=== PATIENT | female | born 1965 | race Caucasian/White ===

== ENCOUNTER 2017-11-20 07:22 | Day surgery (SDC) | payer BC ==
[~2017-11-20] VITALS: Ht 177.8 cm; Wt 65.8 kg
[~2017-11-20 07:22] MED LIST: CEFAZOLIN 1 GM IVPB PREMIX 50 ML IV ONE
[2017-11-20 07:46] LABS: HCG,QUAL RESULT NEGATIVE (NEGATIVE)
[2017-11-20] MEDS ORDERED: LR 1,000 ML IV SCH (09:24)
[2017-11-20] MEDS ORDERED: METOCLOPRAMIDE HCL 10 MG/2 ML VIAL IVP PRN (09:30)
[2017-11-20] MEDS ORDERED: MORPHINE 4 MG/ML INJ. SYRINGE IVP PRN ×3 (09:30)
[2017-11-20] MEDS ORDERED: ONDANSETRON HCL 4 MG/2 ML VIAL IVP PRN (10:00)
[2017-11-20] MEDS ORDERED: OXYCODONE/ACETAMINOPHEN 5-325 TABLET PO PRN ×2 (10:00)
[2017-11-20] MEDS ORDERED: HYDROcodone/ACETAMIN 5-325 MG TAB (NORCO/ VICODIN) PO PRN (10:00)
[2017-11-20] MEDS ORDERED: KETOROLAC TROMETHAMINE 30 MG VIAL IM ONE (11:00)
[2017-11-20 11:06] VITALS: BP_SYST 123
== END 2017-11-20 11:30 | disposition home or self-care (01) ==
LOC: SDS 07:22 → SMU 07:22 → SDS 11:30
PROVIDERS: ATTEND Specialist
DX: N71.9 Inflammatory disease of uterus, unspecified (principal); Z98.890 Other specified postprocedural states; Z79.899 Other long term (current) drug therapy
CPT/HCPCS: 84703; 88305; C1819; J0690; J7120

== ENCOUNTER 2018-03-05 09:33 | Day surgery (SDC) | payer BC ==
[~2018-03-05] VITALS: Ht 177.8 cm; Wt 65.8 kg
[2018-03-05 09:54] LABS: HCG,QUAL RESULT NEGATIVE (NEGATIVE)
[2018-03-05] MEDS ORDERED: fentaNYL CITRATE/PF 100 MCG/2 ML AMP IVP PRN ×2 (12:00)
[2018-03-05] MEDS ORDERED: ONDANSETRON HCL 4 MG/2 ML VIAL IVP PRN ×2 (12:00→16:15)
[2018-03-05] MEDS ORDERED: KETOROLAC TROMETHAMINE 30 MG VIAL IVP PRN (12:00)
[2018-03-05 16:15] VITALS: BP_SYST 114
[2018-03-05] MEDS ORDERED: OXYCODONE/ACETAMINOPHEN 5-325 TABLET PO PRN ×2 (16:15)
[2018-03-05] MEDS ORDERED: HYDROcodone/ACETAMIN 5-325 MG TAB (NORCO/ VICODIN) PO PRN (16:15)
[2018-03-05] MEDS ORDERED: fentaNYL CITRATE/PF 100 MCG/2 ML AMP ONE (16:20)
[2018-03-05] MEDS ORDERED: DEXTROSE 50% JECT 50 ML DISP.SYRIN ONE (16:20)
[2018-03-05] MEDS ORDERED: MIDAZOLAM HCL 5 MG/ML VIAL (VERSED) IV ONE (16:20)
[2018-03-05] MEDS ORDERED: ROCURONIUM BROMIDE 10 MG/ML (ZEMURON) ONE (16:20)
[2018-03-05] MEDS ORDERED: LR 1,000 ML IV.SOLN IV ONE (16:20)
[2018-03-05] MEDS ORDERED: ONDANSETRON HCL 4 MG/2 ML VIAL ONE (16:20)
[2018-03-05] MEDS ORDERED: BUPIVACAINE /PF 0.25% 30 ML VIAL INJ ONE (16:20)
[2018-03-05] MEDS ORDERED: SEVOFLURANE 15 MIN GAS INH ONE (16:20)
[2018-03-05] MEDS ORDERED: PROPOFOL 200MG/ 20ML VIAL (DIPRIVAN) IV ONE (16:20)
[2018-03-05] MEDS ORDERED: NS IRRIG SOLN 1000 ML IR ONE (16:20)
[2018-03-05] MEDS ORDERED: KETOROLAC TROMETHAMINE 30 MG VIAL ONE (16:20)
[2018-03-05] MEDS ORDERED: FUROSEMIDE 20 MG/2 ML VIAL ONE (16:20)
[2018-03-05] MEDS ORDERED: ROPIVACAINE 0.2% (NAROPIN) PF SOLUTION 100 ML BOTTLE ONE (16:20)
[2018-03-05] MEDS ORDERED: SIMETHICONE 80 MG TAB.CHEW PO SCH (17:00)
[2018-03-05] MEDS ORDERED: KETOROLAC TROMETHAMINE 30 MG VIAL IVP ONE (19:00)
== END 2018-03-06 04:50 | disposition home or self-care (01) ==
LOC: SDS 09:33 → SMU 09:35 → SPU 19:17 → SDS 03-06 04:50
PROVIDERS: ATTEND Specialist
DX: D25.1 Intramural leiomyoma of uterus (principal); D25.2 Subserosal leiomyoma of uterus; D25.0 Submucous leiomyoma of uterus; N92.0 Excessive and frequent menstruation with regular cycle; D25.9 Leiomyoma of uterus, unspecified; N80.0 Endometriosis of uterus; N80.1 Endometriosis of ovary; N83.8 Other noninflammatory disorders of ovary, fallopian tube and broad ligament; K58.9 Irritable bowel syndrome, unspecified; Z79.899 Other long term (current) drug therapy
CPT/HCPCS: 84703; 88307; C1727; E0190; J0690; J1885; J1940; J2250; J2405; J2704; J2795; J3010; J3490; J7120

== ENCOUNTER 2018-03-16 09:34 | Inpatient (IN) | payer BC ==
[~2018-03-16] VITALS: Ht 177.8 cm; Wt 63.5 kg
[2018-03-16] MEDS ORDERED: NACL 0.9% 1,000 ML IV ONE (09:38)
[2018-03-16] MEDS ORDERED: ONDANSETRON HCL 4 MG/2 ML VIAL IVP ONE (09:45)
[2018-03-16] MEDS ORDERED: MORPHINE 4 MG/ML INJ. SYRINGE IVP ONE (09:45)
[2018-03-16 09:49] VITALS: BP_SYST 113
--- NOTE | 2018-03-16 09:49 | NUR ---
Patient to ER bed 3 to gown for evaluation. Side rails up. Report given to Paul HINTON.
--- NOTE | 2018-03-16 10:00 | NUR ---
Note sarah in EDM - 03/16/18 at 1025 by [email or web address] Pt informed of and agreed to medication to be administered. Pt refused medication after medication was scanned into [employer] stating "I think my pain is getting better - the percocet that I took a couple hours ago is starting to work. I don't want the morphine or nausea meds." Dr. Pratt notified.
[2018-03-16 10:10] LABS: BASOPHILS % (AUTO) 0.3 % (0.0-2.0); EOSINOPHILS # (AUTO) 0.3 K/uL (0.0-0.4); EOSINOPHILS % (AUTO) 2.4 % (0.0-4.0); HEMATOCRIT 37.1 % (36-48); HEMOGLOBIN 11.8 g/dL (12.0-16.0); LYMPHOCYTES # (AUTO) 1.4 K/uL (1.0-5.5); LYMPHOCYTES % (AUTO) 12.4 % (20.5-51.5); MEAN CORPUSCULAR HEMOGLOBIN 30 pg (27-31); MEAN CORPUSCULAR HGB CONC 32 % (32-36); MEAN CORPUSCULAR VOLUME 93 fL (79.0-98.0); MONOCYTES # (AUTO) 0.6 K/uL (0.0-1.0); MONOCYTES % (AUTO) 5.4 % (1.7-9.3); NEUTROPHILS # (AUTO) 8.8 K/uL (1.8-7.7); NEUTROPHILS % (AUTO) 79.5 % (40.0-70.0); PLATELET COUNT (AUTO) 391 K/uL (130-430); RED BLOOD CELL COUNT(AUTO) 3.97 MIL/uL (4.2-6.2); RED CELL DISTRIBUTION WIDTH 12.6 % (9.0-15.0); WHITE BLOOD COUNT (AUTO) 11.1 K/uL (4.8-10.8)
[2018-03-16 10:19] LABS: BILIRUBIN,URINE NEGATIVE (NEGATIVE); CLARITY/URINE SL HAZY (CLEAR); COLOR,URINE AMBER (YELLOW); GLUCOSE,URINE NEGATIVE (NEGATIVE); KETONES,URINE TRACE (NEGATIVE); LEUKOCYTE ESTERASE ,URINE TRACE (NEGATIVE); NITRITE, URINE NEGATIVE (NEGATIVE); PROTEIN URINE NEGATIVE (NEGATIVE); UROBILINOGEN,URINE 0.2 (0.2-1.0)
[2018-03-16 10:23] LABS: CALCIUM 8.9 mg/dL (8.4-11.0); CREATININE 0.82 mg/dL (0.55-1.30); POTASSIUM 3.6 mmol/L (3.5-5.1)
[2018-03-16 10:25] LABS: BLOOD, URINE TRACE (NEGATIVE)
[2018-03-16 10:25] LABS: PROTHROMBIN TIME 9.8 SECS (9.5-12.5)
[2018-03-16 10:28] LABS: ALBUMIN 3.3 g/dL (3.4-4.8); TOTAL BILIRUBIN 0.3 mg/dL (0.0-1.0)
[2018-03-16 10:34] LABS: BACTERIA,URINE FEW /HPF (None Seen); MUCUS,URINE 2+ /LPF (None Seen); RBC,URINE 0-3 /HPF (0-3)
[2018-03-16] MEDS ORDERED: cefTRIAXone 1 GM IVPB PREMIX 50 ML IV ONE ×3 (11:45→22:24)
[2018-03-16] MEDS ORDERED: OXYCODONE/ACETAMINOPHEN 5-325 TABLET PO PRN (12:15)
[2018-03-16] MEDS ORDERED: D5/0.45 NS 1,000 ML IV SCH (12:15)
[2018-03-16] MEDS ORDERED: KETOROLAC TROMETHAMINE 30 MG VIAL IM ONE (12:15)
[2018-03-16] MEDS ORDERED: SENNOSIDES 8.6 MG TABLET PO ONE (12:15)
[2018-03-16 13:03] VITALS: BP_SYST 107
[2018-03-16] MEDS: KETOROLAC TROMETHAMINE 30 MG VIAL IM SCH ×2 (17:42→23:16)
[2018-03-16] MEDS ORDERED: SENNOSIDES 8.6 MG TABLET PO SCH (21:00)
[2018-03-16] MEDS: metroNIDAZOLE 500 mg/NS 100 ML IV SCH (22:00)
[2018-03-16] MEDS ORDERED: metroNIDAZOLE 500 mg/NS 200 ML IV ONE (22:24)
[2018-03-16] MEDS ORDERED: LR 1,000 ML IV SCH (22:30)
[2018-03-17] MEDS: metroNIDAZOLE 500 mg/NS 100 ML IV SCH (05:34)
[2018-03-17] MEDS: KETOROLAC TROMETHAMINE 30 MG VIAL IM SCH (05:34)
[2018-03-17] MEDS ORDERED: POLYETHYLENE GLYCOL 3350, 17 GM/ POWD.PACK PO SCH (09:00)
[2018-03-17] MEDS ORDERED: POLYETHYLENE GLYCOL 3350, 17 GM/ POWD.PACK PO ONE (09:38)
[2018-03-17] MEDS ORDERED: LUBIPROSTONE 24 MCG CAPSULE PO SCH (21:00)
[2018-03-18] MEDS ORDERED: POLYETHYLENE GLYCOL 3350, 17 GM/ POWD.PACK PO SCH (09:00)
== END 2018-03-17 15:15 | disposition home or self-care (01) | DRG 394 ==
LOC: SED 09:34 → SPU 12:07
PROVIDERS: ADMIT Specialist; ATTEND Specialist
DX: K91.89 Other postprocedural complications and disorders of digestive system (principal); K56.7 Ileus, unspecified; T40.605A Adverse effect of unspecified narcotics, initial encounter; K59.00 Constipation, unspecified; Y83.8 Other surgical procedures as the cause of abnormal reaction of the patient, or of later complication, without mention of misadventure at the time of the procedure; Y92.89 Other specified places as the place of occurrence of the external cause; Z90.710 Acquired absence of both cervix and uterus; Z84.89 Family history of other specified conditions; Z79.899 Other long term (current) drug therapy
CPT/HCPCS: 36415; 71045; 80053; 81000-TC; 82150-TC; 82550-TC; 83605; 83690-TC; 84484; 85025; 85610-TC; 85730-TC; 87040-TC; 87086; 93005; 96361; 96365; 96372; 96375; 99285; J0696; J1885; J2270; J2405; J3490; J7060